=== PATIENT | male | born 1985 | race Caucasian/White ===

== ENCOUNTER → 2019-10-31 | Outpatient (CLI) | payer BC ==
--- NOTE | 2019-10-31 10:09 | US ---
EXAMINATION TYPE: US abdomen limited DATE OF EXAM: 10/31/2019 COMPARISON: NONE CLINICAL HISTORY: R10.11 right upper quadrant abdominal pain. RUQ pain, no surgeries EXAM MEASUREMENTS: Liver Length: 17.7 cm Gallbladder Wall: 0.1 cm CBD: 0.5 cm Right Kidney: 9.9 x 6.0 x 5.9 cm Pancreas: Pancreatic head and tail are obscured by overlying bowel gas. Liver: Increased attenuation, decreased visualization of vessels suggestive of fatty infiltrate. Ec hogenic and coarse. There are 2 areas of hypoechogenicity are seen adjacent to the gallbladder fossa and segment IVb of the liver. These measure 1.8 cm and 1.2 cm. The liver is upper limits of normal in size. Gallbladder: wnl Evidence for sonographic Marlow's sign: neg CBD: wnl Right Kidney: No hydronephrosis or masses seen IMPRESSION: 1. No sonographic evidence of cholelithiasis nor acute cholecystitis. 2. Coarsened hepatic echotexture most commonly relating to hepatic steatosis. Correlate with liver fu nction tests. Additionally there are 2 areas of hypoechogenicity adjacent to the gallbladder fossa th at May represent focal fatty sparing although other hepatic lesions are possible and full characteriz ation with three-phase enhanced CT MRI is recommended.
== END | disposition home or self-care (01) ==
LOC: RADUSWWP 08:55
PROVIDERS: ATTEND Internal Medicine
DX: K76.0 Fatty (change of) liver, not elsewhere classified (principal)
CPT/HCPCS: 76705